=== PATIENT | female | born 1985 | race Caucasian/White ===

== ENCOUNTER 2022-04-09 03:57 | Emergency (ER) | payer OTHER ==
[~2022-04-09] VITALS: Ht 154.9 cm; Wt 65.8 kg
[2022-04-09] MEDS ORDERED: PREDNISONE20 M1 PO (05:58)
[2022-04-09] MEDS ORDERED: ZITHROMAX250 MG PO (05:58)
== END 2022-04-09 07:01 | disposition home or self-care (01) ==
LOC: ED 03:57
DX: J10.1 Influenza due to other identified influenza virus with other respiratory manifestations (principal); Z20.822 Contact with and (suspected) exposure to COVID-19; Z88.5 Allergy status to narcotic agent